=== PATIENT | female | born 1975 | race Caucasian/White ===

== ENCOUNTER 2019-02-08 12:37 | Emergency (ER) | payer MEDICAID ==
[~2019-02-08] VITALS: Ht 162.6 cm; Wt 70.7 kg
--- NOTE | 2019-02-08 13:53 | NUR ---
PATIENT BROUGHT BACK FROM TRIAGE WITH CHIEF COMPLAINT OF RLQ STARTING THIS MORNING. THE PATIENT DENIES RECENT TRAUMA, SOB, CP, N/V. THE PATIENT IS ALERT, ORIENTED, WARM & DRY.
--- NOTE | 2019-02-08 14:07 | NUR ---
SUNITA BOSWELL AT BEDSIDE FOR EVALUATION
[2019-02-08 14:29] LABS: MICROSCOPIC NOT IND
[2019-02-08] MEDS ORDERED: ONDANSETRON 2MG/ML, 2ML IVPush ONE (14:30)
[2019-02-08] MEDS ORDERED: MORPHINE SULFATE 4 MG/ML, 1ML ONE ×2 (14:37→17:57)
[2019-02-08] MEDS ORDERED: ONDANSETRON 2MG/ML, 2ML ONE (14:37)
[2019-02-08 14:43] LABS: CULTURE INDICATED? NO
[2019-02-08] MEDS: MORPHINE SULFATE 4 MG/ML, 1ML IVPush PRN ×2 (14:49→17:58)
--- NOTE | 2019-02-08 14:51 | NUR ---
TASK RN: PT AMBULATED TO RESTROOM WITH STEADY GAIT. MEDS ADMIN PER MAR. SMITH.
[2019-02-08 15:01] LABS: BASOPHILS # (AUTO) 0.03 x10^3/uL (0-0.1); BASOPHILS % (AUTO) 0 % (0-1); EOSINOPHILS # (AUTO) 0.19 x10^3/uL (0-0.4); EOSINOPHILS % (AUTO) 2 % (1-7); LYMPHOCYTES # (AUTO) 1.75 x10^3/uL (1-3.4); LYMPHOCYTES % (AUTO) 16 % (22-44); MD NO; MEAN CORPUSCULAR HEMOGLOBIN 31.3 pg (27.0-34.8); MEAN CORPUSCULAR HGB CONC 32.8 g/dL (32.4-35.8); MEAN CORPUSCULAR VOLUME 95.3 fL (80-100); MEAN PLATELET VOLUME 8.9 fL (7.4-10.4); MONOCYTES # (AUTO) 0.57 x10^3/uL (0.2-0.8); MONOCYTES % (AUTO) 5 % (2-9); NEUTROPHILS # (AUTO) 8.54 x10^3/uL (1.8-6.8); NEUTROPHILS % (AUTO) 77 % (42-75); PLATELET COUNT 245 x10^3/uL (130-400); RED BLOOD COUNT 4.49 x10^6/uL (3.82-5.3); RED CELL DISTRIBUTION WIDTH 13.2 % (9.6-15.2)
[2019-02-08 15:04] LABS: ALANINE AMINOTRANSFERASE 32 U/L (12-78); ALBUMIN 3.8 g/dL (3.4-5.0); ANION GAP 8 mmol/L (5-15); CALCIUM 8.9 mg/dL (8.5-10.1); CHLORIDE 111 mmol/L (98-107); CREATININE 0.88 mg/dL (0.55-1.02)
[2019-02-08 15:09] LABS: ALKALINE PHOSPHATASE 78 U/L (45-117); BILIRUBIN,TOTAL 0.3 mg/dL (0.2-1.0); TOTAL PROTEIN 7.4 g/dL (6.4-8.2)
--- NOTE | 2019-02-08 15:51 | NUR ---
pt to imaging
[2019-02-08] MEDS ORDERED: OMNIPAQUE 350 MG/ML, 100ML BOTTLE ONE (16:04)
--- NOTE | 2019-02-08 16:17 | NUR ---
PATIENT BACK FROM IMAGING, RESTING IN BED, CALL LIGHT IN REACH.
[2019-02-08] MEDS ORDERED: KETOROLAC 30 MG/1 ML ONE (17:00)
[2019-02-08] MEDS ORDERED: KETOROLAC 30 MG/1 ML IVPush ONE (17:00)
--- NOTE | 2019-02-08 17:03 | NUR ---
RESTING IN BED, MEDICATED ORDERED
--- NOTE | 2019-02-08 17:52 | NUR ---
SUNITA BOSWELL AT BEDSIDE TO DISCUSS POC
[2019-02-08 18:01] VITALS: BP 125/75
--- NOTE | 2019-02-08 18:01 | NUR ---
DISCHARGE INSTRUCTIONS REVIEWED
== END 2019-02-08 18:20 | disposition home or self-care (01) ==
LOC: ED 15:00
DX: R10.31 Right lower quadrant pain (principal); R11.10 Vomiting, unspecified; K21.9 Gastro-esophageal reflux disease without esophagitis
CPT/HCPCS: 36415; 74177; 80053; 81003; 83690; 84703; 85025; 96374; 96375; 96376; 99284; J1885; J2270; J2405; Q9967